=== PATIENT | female | born 1965 ===

== ENCOUNTER 2017-09-16 07:43 | Inpatient (IN) | payer OTHER ==
[2017-09-09 10:18] VITALS: BMI 27.4
[2017-09-16] MEDS ORDERED: Lactated Ringer's 1,000 ML IV ONE ×3 (09:00→12:25)
[2017-09-16] MEDS ORDERED: Propofol 10 mg/ml Inj (20 ML) ONE (10:05)
[2017-09-16] MEDS ORDERED: ePHEDrine 50 mg/ml Inj ONE (10:06)
[2017-09-16] MEDS ORDERED: Rocuronium 10 mg/ml (5 ml) ONE ×2 (10:06→12:47)
[2017-09-16] MEDS ORDERED: Midazolam 2 MG/2 ML VIAL ONE (10:06)
[2017-09-16] MEDS ORDERED: Succinylcholine 200 mg/10 ml Inj IV ONE (10:10)
[2017-09-16] MEDS ORDERED: ceFAZolin IV 1 gm in Dextrose 1 GM/50 ML BAG IVPB ONE ×2 (10:20→18:30)
[2017-09-16] MEDS ORDERED: SULFANILAMIDE (AVC) VAG CREAM VG ONE (10:20)
[2017-09-16] MEDS ORDERED: Bupivacaine 0.5% Inj(30mL) ONE (10:20)
[2017-09-16] MEDS ORDERED: Vasopressin 20 Units/ml Inj ONE (10:37)
[2017-09-16] MEDS ORDERED: Dexamethasone 4 mg/1 ml ONE (11:01)
[2017-09-16] MEDS ORDERED: Desflurane Inhalation Anesthetic Liq (240 ml) ONE (11:35)
[2017-09-16] MEDS ORDERED: Methylene Blue 10 mg/mL(10ml) IV ONE (13:37)
[2017-09-16] MEDS ORDERED: HEMOSTATIC MATRIX 10 ML DIS.NEEDLE TOP ONE (13:40)
[2017-09-16] MEDS ORDERED: Neostigmine Methylsulfate 3mg/3ml Syringe IV ONE (13:55)
[2017-09-16] MEDS ORDERED: DiphenhydrAMINE 50 mg/ml Inj IVP PRN (14:38)
[2017-09-16] MEDS ORDERED: Naloxone 0.4 mg/ml Inj (Adult) IVP PRN (14:41)
[2017-09-16] MEDS ORDERED: Oxycodone/Acetaminophen 5/325 mg Tab PO PRN (14:44)
[2017-09-16] MEDS ORDERED: Lactated Ringer's 1,000 ML IV SCH (14:45)
[2017-09-16] MEDS: HYDROmorphone 0.5 mg/0.5 ml ISec IVP PRN ×3 (14:50→15:50)
[2017-09-16 16:19] LABS: HEMATOCRIT 28.2 % (34.0-47.0); MEAN CELL VOLUME 73.6 fl (81.0-99.0); MEAN CORPUSCULAR HEMOGLOBIN 22.1 pg (27.0-31.0); MEAN CORPUSCULAR HGB CONC 30.1 g/dL (33.0-37.0); RED CELL DISTRIBUTION WIDTH 21.1 % (11.5-14.5); WHITE BLOOD COUNT 11.9 K/uL (4.8-10.8)
--- NOTE | 2017-09-16 18:20 | OP ---
ADDENDUM PROCEDURE DATE: 09/16/2017 This is the workforce development assistant addendum to the procedure. I was assisted in the procedure. I was there to help creating exposure, helpful on obtaining hemostasis and I was helpful in extracting the surgical specimen and I was there for closure of the patient. Procedure would not have been possible without my assistance. The rest of the operative report will be dictated by Dr. Cleopatra Coronado, the primary surgeon. Edward Amos MD
[2017-09-17 01:09] LABS: HEMATOCRIT 27.6 % (34.0-47.0); MEAN CELL VOLUME 73.7 fl (81.0-99.0); MEAN CORPUSCULAR HEMOGLOBIN 23.1 pg (27.0-31.0); MEAN CORPUSCULAR HGB CONC 31.3 g/dL (33.0-37.0); RED CELL DISTRIBUTION WIDTH 20.5 % (11.5-14.5); WHITE BLOOD COUNT 11.4 K/uL (4.8-10.8)
[2017-09-17 03:15] LABS: RBC URINE 32 /hpf (0-3); URINE BACTERIA RARE (<OCC); URINE BILIRUBIN NEGATIVE (NEGATIVE); URINE BLOOD LARGE (NEGATIVE); URINE COLOR YELLOW (YELLOW); URINE GLUCOSE (UA) NEG (Normal); URINE KETONE NEGATIVE (NEGATIVE); URINE LEUKOCYTE ESTERASE SMALL Leu/uL (Negative); URINE PROTEIN 30 mg/dL (NEGATIVE); URINE UROBILINOGEN 0.2-1.0 mg/dL (0.2-1.0); WBC URINE 13 /hpf (0-5)
[2017-09-17] MEDS: Ampicillin 2 GM in Sodium Chloride 0.9% 100 ML IVPB SCH ×4 (04:18→21:31)
[2017-09-17] MEDS: Lactated Ringer's 1,000 ML IV SCH ×2 (04:24→15:53)
[2017-09-17] MEDS: Gentamicin 80mg/50ml NS 80 MG/50 ML BAG IVPB SCH ×2 (05:28→16:16)
[2017-09-17 08:05] LABS: HEMATOCRIT 27.2 % (34.0-47.0); MEAN CELL VOLUME 73.6 fl (81.0-99.0); MEAN CORPUSCULAR HGB CONC 32.7 g/dL (33.0-37.0); RED CELL DISTRIBUTION WIDTH 20.7 % (11.5-14.5); WHITE BLOOD COUNT 10.4 K/uL (4.8-10.8)
[2017-09-17 08:13] LABS: ALB/GLOB RATIO 1.1 (1.0-2.1); ALKALINE PHOSPHATASE 33 U/L (38-126); ALT/SGPT 30 U/L (9-52); AST/SGOT 34 U/L (14-36); BILIRUBIN,TOTAL 0.5 mg/dl (0.2-1.3); BLOOD UREA NITROGEN 10 mg/dl (7-17); CALCIUM 8.6 mg/dL (8.4-10.2); CARBON DIOXIDE 25 mmol/L (22-30); CHLORIDE 109 mmol/L (98-107); GFR AFRICAN-AMERICAN > 60; GLUCOSE,RANDOM 109 mg/dL (65-105); POTASSIUM 3.8 MMOL/L (3.6-5.0); SODIUM 140 mmol/l (132-148); TOTAL PROTEIN 5.6 G/DL (6.3-8.2)
[2017-09-17 18:14] LABS: HEMATOCRIT 26.8 % (34.0-47.0); MEAN CORPUSCULAR HEMOGLOBIN 23.6 pg (27.0-31.0); MEAN CORPUSCULAR HGB CONC 31.5 g/dL (33.0-37.0); RED CELL DISTRIBUTION WIDTH 21.2 % (11.5-14.5); WHITE BLOOD COUNT 10.3 K/uL (4.8-10.8)
[2017-09-17] MEDS: Oxycodone/Acetaminophen 5/325 mg Tab PO PRN (20:05)
[2017-09-18] MEDS: Oxycodone/Acetaminophen 5/325 mg Tab PO PRN (03:09)
[2017-09-18] MEDS: Ampicillin 2 GM in Sodium Chloride 0.9% 100 ML IVPB SCH ×2 (03:11→09:22)
[2017-09-18] MEDS: Gentamicin 80mg/50ml NS 80 MG/50 ML BAG IVPB SCH (05:26)
[2017-09-18 07:22] LABS: BASO % 0.1 % (0.0-2.0); EOS % 0.3 % (0.0-4.0); HEMATOCRIT 26.3 % (34.0-47.0); LYMPH # 1.4 K/uL (1.0-4.3); LYMPH % 14.5 % (20.0-40.0); MEAN CELL VOLUME 75.3 fl (81.0-99.0); MEAN CORPUSCULAR HEMOGLOBIN 23.4 pg (27.0-31.0); MEAN PLATELET VOLUME 8.4 fl (7.2-11.7); MONO # 0.5 K/uL (0.0-0.8); MONO % 4.8 % (0.0-10.0); NEUT # 7.6 K/uL (1.8-7.0); NEUT % 80.3 % (50.0-75.0); RED CELL DISTRIBUTION WIDTH 22.1 % (11.5-14.5); WHITE BLOOD COUNT 9.5 K/uL (4.8-10.8)
[2017-09-18 08:23] VITALS: O2SAT 99
[2017-09-18 12:03] VITALS: BP 130/87; PULSE 100; RESP 18; TEMP 99
--- NOTE | 2017-09-18 13:58 | CP.PCM.PN ---
Subjective - Date & Time of Evaluation Date of Evaluation: 09/18/17 Time of Evaluation: 12:45 - Subjective Subjective: Ms. Tonja Ruvalcaba is a pleasant 52 yo F s/p davinci Hysterectomy, BL salpingooophorectomy, lysis of adhesions and myomectomy POD2. Pt was seen and examined at bedside. She denies significant overnight events. She ambulates well ; She denies: HUFF/CP/N/V/SOB/dizziness/chills. Negative for calf tenderness or CVA tenderness. She denies vaginal bleed Afebrile General: pleasant, in no acute distress HEENT: normocephalic, PERRLA; AAOx3 Heart: no murmurs, regular rate and rhythm, S1, S2 normal. Lungs: clear to auscultation bilaterally, no wheezing Abdomen: nontender, gravid CVA: negative Lower extremities: negative for pitting edema Pt cleared for discharge with Percocet, Colace, Motrin and Keflex. Pt shares that she has FeSO4 at home. Instructed her to continue taking the supplements due to Hbg of 8.2. Case d/w Dr. Cliff Deleon, PGY1 Objective - Vital Signs/Intake and Output Vital Signs (last 24 hours): Temp Pulse Resp BP Pulse Ox 99 F 100 H 18 130/87 99 09/18/17 12:02 09/18/17 12:02 09/18/17 12:02 09/18/17 12:02 09/18/17 12:02 Intake and Output: 09/18/17 09/18/17 06:59 18:59 Intake Total 1900 Output Total 275 Balance 1625 - Medications Medications: Current Medications Acetaminophen (Tylenol 325mg Tab) 650 mg PO Q6 PRN PRN Reason: temp Last Admin: 09/17/17 01:46 Dose: 650 mg Bisacodyl (Dulcolax) 10 mg MD DAILY [facility] Last Admin: 09/18/17 08:56 Dose: 10 mg Docusate Sodium (Colace) 100 mg PO BID [facility] Last Admin: 09/18/17 08:56 Dose: 100 mg Lactated Ringer's (Lactated Ringer's) 1,000 mls @ 125 mls/hr IV .Q8H [facility] Last Admin: 09/17/17 15:53 Dose: 125 mls/hr Lactated Ringer's (Lactated Ringer's) 1,000 mls @ 125 mls/hr IV .Q8H [facility] Last Admin: 09/18/17 03:17 Dose: 125 mls/hr Ampicillin 2 gm/ Sodium (Chloride) 100 mls @ 100 mls/hr IVPB Q6 [facility] PRN Reason: Protocol Last Admin: 09/18/17 09:22 Dose: 100 mls/hr Clindamycin Phosphate 900 mg/ (Sodium Chloride) 106 mls @ 100 mls/hr IVPB Q8H [facility] PRN Reason: Protocol Last Admin: 09/18/17 09:36 Dose: 100 mls/hr Gentamicin Sulfate/Sodium Chloride (Gentamicin 80mg/50ml Ns) 80 mg in 50 mls @ 50 mls/hr IVPB Q12H [facility] Last Admin: 09/18/17 05:26 Dose: 50 mls/hr Ibuprofen (Motrin Tab) 800 mg PO Q8 PRN PRN Reason: mild to mod pain 1-5 Last Admin: 09/18/17 08:56 Dose: 800 mg Naloxone HCl (Narcan) 0.1 mg IVP Q2M PRN PRN Reason: Opiate reversal Oxycodone/Acetaminophen (Percocet 5/325 Mg Tab) 2 tab PO Q6 PRN PRN Reason: pain mod-severe 6-10 Stop: 09/20/17 09:00 Last Admin: 09/18/17 03:09 Dose: 2 tab - Labs Labs: 09/18/17 07:20 09/17/17 07:00
--- NOTE | 2017-09-22 14:37 | OP ---
PROCEDURE DATE: 09/16/2017 PREOPERATIVE DIAGNOSES: This is a 52-year-old female with history of chronic pelvic pain, menorrhagia, fibroid uterus, anemia, failure of medical and surgical therapy. POSTOPERATIVE DIAGNOSES: This is a 52-year-old female with history of chronic pelvic pain, menorrhagia, fibroid uterus, anemia, failure of medical and surgical therapy with additional finding of multiple adhesions. PROCEDURE: Robotic total laparoscopic hysterectomy with bilateral salpingo-oophorectomy, lysis of adhesions, as well as cystoscopy. SURGEON: Cleopatra Coronado MD HALL SUPERVISOR: Dr. Amos. TYPE OF ANESTHESIA: General. FINDINGS: Uterus, approximately 18 to 20-week gestation, noted to have multiple leiomyomas with evidence of adenomyosis. She was also found to have a paratubal cyst as well as an ovarian cyst on the left side and on the right. She had multiple adhesions. ESTIMATED BLOOD LOSS: Approximately 300 mL. DESCRIPTION OF PROCEDURE: The patient was informed of the risks, benefits, and alternative procedure. Risk factors included infection, bleeding, damage to the surrounding organs and tissue, possible fistula formation, injury to the ureters, blood transfusion, complications from anesthesia, and possible . All questions were answered prior to obtaining the consent form. Once the consent form was obtained, she was then taken to the operating room and given adequate general anesthesia. The patient was prepped and draped in lithotomy position, noted to have some at 6 and 12 o'clock position with 0 Vicryl. The cervix was dilated with Hanks dilators, and a VCare apparatus was passed into the uterus for uterine manipulation during the planned operative procedure. Attention was then turned towards the abdomen where a supraumbilical incision was made with a knife and a Veress needle was applied into the peritoneal cavity. The peritoneal position was confirmed and the CO2 gas was insufflated for creation of an adequate intraperitoneal bubble. The #8 trocar followed by the scope was then passed into the peritoneal cavity under direct visualization. [employer] ports and arms 1, 2, and 3 of the robot were passed under direct visualization. The robot armed with #8 trocar, the treasury assistant port was #10 trocar. These were then passed in the right and on the left quadrant respectively under direct visualization. The uterus was then elevated and the round ligaments were identified, grasped with the bipolar forceps, dissected, and incision with hot shear. The ovaries were then identified, the adhesions on the left ovary to the pelvic sidewall were then lysed with both sharp and blunt dissection, grossly consistent with a small focus, noted that she has some scarring tissue there. With adequate mobilization of the left ovary, the infundibular pelvic was identified. The broad ligament was entered over the medial leaf of the psoas muscle. The defect was then created in the posterior broad ligament over the course of the uterus. Under direct visualization, the infundibulopelvic was grasped with PK. Excellent hemostasis was noted. The procedure was then repeated on the right hand side and the right ovary was freely mobilized, the broad ligament entered, and treating the posterior broad ligament, the infundibulopelvic ligament was skeletonized, isolated, and grasped with the PK. Excellent hemostasis was noted. The uterine vessels were then skeletonized and then grasped with the PK. Excellent hemostasis was noted. The vesicouterine peritoneum was identified and the bladder was mobilized, and a bladder flap was created with the actual scissor. The uterine vessels were then grasped with the bipolar forceps, dissected, and incised and carried down to the VCare as the cornual ligaments were serially transected with the Bovie curette and the Unipolar Upon adequate mobilization of the vascular pedicles, the vaginal cuff was entered anteriorly, the groove of the VCare was identified. The cervix was then circumferential with careful attention paid to the with the groove of the VCare. The specimen was then removed from its attachment and taken through the vagina. The vaginal cuff was then re-approximated using the V-Loc. The abdomen was irrigated with normal saline where the vascular pedicles and hemostasis was assured. The vaginal cuff again was re-approximated and closed with a V-Loc, and the uterus delivered . Cleopatra Coronado MD
== END 2017-09-18 14:30 | disposition home or self-care (01) | DRG 743 ==
LOC: H.OPSURG 07:43 → H.PEDS 14:44 → OBSVTOIN 09-17 22:30
PROVIDERS: ADMIT Obstetrics & Gynecology; ATTEND Obstetrics & Gynecology
PROC: 0UT24ZZ Resection of Bilateral Ovaries, Percutaneous Endoscopic Approach (ICD-10-PCS; 2017-09-16)
PROC: 0UT74ZZ Resection of Bilateral Fallopian Tubes, Percutaneous Endoscopic Approach (ICD-10-PCS; 2017-09-16)
PROC: 0TJB8ZZ Inspection of Bladder, Via Natural or Artificial Opening Endoscopic (ICD-10-PCS; 2017-09-16)
PROC: 8E0W4CZ Robotic Assisted Procedure of Trunk Region, Percutaneous Endoscopic Approach (ICD-10-PCS; 2017-09-16)
PROC: 0UT94ZZ Resection of Uterus, Percutaneous Endoscopic Approach (ICD-10-PCS; principal; 2017-09-16 09:45)
PROC: 0UN14ZZ Release Left Ovary, Percutaneous Endoscopic Approach (ICD-10-PCS; 2017-09-16 09:45)
DX: D25.9 Leiomyoma of uterus, unspecified (principal); N80.0 Endometriosis of uterus; N73.6 Female pelvic peritoneal adhesions (postinfective); N83.201 Unspecified ovarian cyst, right side; N83.202 Unspecified ovarian cyst, left side; N83.8 Other noninflammatory disorders of ovary, fallopian tube and broad ligament; D64.9 Anemia, unspecified; N92.0 Excessive and frequent menstruation with regular cycle